=== PATIENT | male | born 1995 | race Caucasian/White ===

== ENCOUNTER 2020-09-21 16:34 | Emergency (ER) | payer OTHER, SELFPAY ==
--- NOTE | 2020-09-21 16:47 | ED.ANIMALBIT ---
HPI - Animal Bite General Chief Complaint: Animal Bite Stated Complaint: dog bite Time Seen by Provider: 09/21/20 16:47 Source: patient Mode of arrival: ambulatory History of Present Illness HPI narrative: Patient presents with a dog bite to his left hand. Patient states the bite was unprovoked by his roommates dog. Patient has a puncture wound to the base of his left thumb. Normal range of motion no bleeding slight swelling to the area. MD complaint: animal bite Animal: dog Description of animal: household pet Mechanism: bite Location - Extremities: Left: hand (PUNCTURE WOUND TO BASE OF THUMB) Related Data Home Medications Medication Instructions Recorded Confirmed famotidine 20 mg DAILY 09/21/20 09/21/20 fluticasone propionate 2 spray INTRANASAL DAILY 09/21/20 09/21/20 omeprazole 20 mg DAILY 09/21/20 09/21/20 Allergies Allergy/AdvReac Type Severity Reaction Status Date / Time Penicillins Allergy Rash Verified 09/21/20 16:47 Review of Systems Review of Systems: Narrative: CONSTITUTIONAL: Denies fever, chills, or sweats. EYES: Denies visual changes, redness, or discharge. ENT: Denies rhinorrhea, congestion, sore throat, or otalgia. CARDIOVASCULAR: Denies chest pain, palpitations, or edema. RESPIRATORY: Denies cough or dyspnea. GASTROINTESTINAL: Denies abdominal pain, nausea, vomiting, or diarrhea. GENITOURINARY: Denies dysuria or hematuria. SKIN: Denies rash or itching. MUSCULOSKELETAL: Denies back pain, joint pain, or myalgia. NEUROLOGIC: Denies headache, numbness, or weakness. PSYCHIATRIC: Denies anxiety or depression. PMFSH Social History Social History Gender identity (if verbalized by the patient): Male Comments At time of signature, agree with nursing past medical, surgical, social and family history. There is no relevant family history pertinent to the presenting complaint Exam Narrative: Exam Narrative: GENERAL: Well-appearing, well-nourished, and in no acute distress. HEAD: Normocephalic, atraumatic. EYES: PERRLA and EOMI. ENT: Nares clear, no rhinorrhea or epistaxis. Mucous membranes moist. NECK: Supple. CHEST: Clear to auscultation. No respiratory distress. HEART: Regular rate and rhythm. No murmur heard. Normal peripheral pulses. ABDOMEN: Soft, nontender, nondistended, normal active bowel sounds. EXTREMITIES: Normal range of motion. No edema. HAND EXAM -puncture wound to base of left thumb, no laceration, no swelling, no erythema, normal digit cascade with flexion of fingers, median nerve, ulnar nerve, radial nerve is intact. Normal sensation of each side of each finger, can perform `ok? sign, `cross over finger test of index and middle fingers? and `thumbs up? sign, normal thumb opposition, no scissoring. good capillary refill and radial pulse. normal flexion and extension of fingers and wrist. normal supination at wrist. Normal forearm and elbow exam. SKIN: Warm, dry, no rash. NEURO: No focal deficits. Alert and oriented x3. Wilbur Coma Scale Eye Opening: Spontaneous 4 Angela Coma Scale Motor: Obeys Commands 6 Angeal Coma Scale Verbal: Oriented 5 Wilbur Coma Scale Total 15 Course Reevaluation(s) Additional Reevaluation(s): Critical dx considered and discussed with pt. Educated patient on red flag s/s and to go to ED if s/s occur. Discussed with pt when to return to [facility] or primary care provider. Pt gave verbal undertstanding, all questions were answered, and pt was agreeable to plan Vital Signs Vital signs: Vital Signs Temperature 37.3 C 09/21/20 16:49 Pulse Rate 83 09/21/20 16:49 Respiratory Rate 18 09/21/20 16:49 Blood Pressure 136/89 09/21/20 16:49 Pulse Oximetry 100 09/21/20 16:49 Temperature 37.3 C 09/21/20 16:49 Pulse Rate 83 09/21/20 16:49 Respiratory Rate 18 09/21/20 16:49 Blood Pressure 136/89 09/21/20 16:49 Pulse Oximetry 100 09/21/20 16:49 Please MARIA G schedule a followup visit with your personal physician for further ev
[2020-09-21 16:49] VITALS: BP 136/89; PULSE 83; RESP 18; TEMP 37.3; O2SAT 100
== END 2020-09-21 16:57 | disposition home or self-care (01) ==
PROVIDERS: Emergency Provider Nurse Practitioner Family; PCP Family Medicine
DX: S61.032A Puncture wound without foreign body of left thumb without damage to nail, initial encounter (principal); W54.0XXA Bitten by dog, initial encounter; K21.9 Gastro-esophageal reflux disease without esophagitis
CPT/HCPCS: 99203; G0463